=== PATIENT | male | born 1970 | race Caucasian/White ===

== ENCOUNTER → 2017-06-25 | Day surgery (SDC) | payer MEDICARE, MEDICAID ==
[2017-06-22 09:24] VITALS: BP 134/78
[~2017-06-25] VITALS: Ht 172.7 cm; Wt 81.6 kg
[~2017-06-25] MED LIST: CILOSTAZOL100 MG PO; ELIQUIS5 M1 PO; KEFLEX500 MG PO; LOVASTATIN40 MG PO; NORCO 5-325 TA1 EACH PO; WARFARIN SODIUM4 MG PO; ZOFRAN4 MG PO
--- NOTE | ~2017-06-25 | PROC NOTE ---
[place], [place] PROCEDURE NOTE NAME: JAME PERKINS [facility] #: [id number] UNIT #: [id number] ROOM: DOCTOR: DESMOND BAIG MD BIRTHDATE: [birth year] DOS: 06/25/2017 PREOPERATIVE DIAGNOSIS: Right thigh cyst. POSTOPERATIVE DIAGNOSIS: Right thigh cyst. PROCEDURE: Excision of right thigh cyst. SURGEON: Desmond Baig MD CURRICULUM COACH: MS3. ANESTHESIA: MAC. INDICATIONS: This is a 46-year-old male with a history of persistent right thigh cyst who is here for the above-mentioned procedure. The procedure and its complications were explained to the patient in detail. Complications that were discussed included but were not limited to bleeding, infection, hematoma/seroma/abscess formation and prolonged pain. He agreed to proceed. DESCRIPTION OF PROCEDURE: After identifying the patient, the patient was brought to the operating suite and placed in the right lateral position with his left lower extremity flexed at the hip. After IV sedation was administered, parts were painted and draped and a time-out procedure was called. An elliptical incision was marked and local anesthesia (1% plain lidocaine) was infiltrated in the marked site. A skin incision was made and was deepened in layers. This cyst was excised in its entirety after it was adequately dissected away from the surrounding structures with the help of electrocautery. The cyst was then removed and sent for histopathological diagnosis. Hemostasis was achieved with the help of electrocautery. Thereafter, the subcutaneous tissue was irrigated and approximated with the help of 3-0 Vicryl in an interrupted fashion and the skin edges were approximated with the help of 4-0 Vicryl in a subcuticular running fashion. Dressing was placed. The patient tolerated the procedure well. There were no complications. The patient was brought back to the recovery room in stable fashion. Dr. Desmond Baig, the attending surgeon, was present throughout the operating case. Desmond Baig MD CM:PROCNOTE:PROCEDURE NOTE [id number] DESMOND BAIG MD
[2017-06-25 08:10] VITALS: BP 133/82
[2017-06-25 09:26] VITALS: BP 92/53
[2017-06-25 09:41] VITALS: BP 101/52
[2017-06-25 09:56] VITALS: BP 114/75
== END | disposition home or self-care (01) ==
LOC: SDC 06-22 08:00
DX: L72.3 Sebaceous cyst (principal); I10 Essential (primary) hypertension; E78.5 Hyperlipidemia, unspecified; I73.9 Peripheral vascular disease, unspecified; Z89.421 Acquired absence of other right toe(s); Z80.9 Family history of malignant neoplasm, unspecified; Z79.899 Other long term (current) drug therapy; I25.10 Atherosclerotic heart disease of native coronary artery without angina pectoris; Z87.891 Personal history of nicotine dependence

== ENCOUNTER → 2018-03-08 | Outpatient (CLI) | payer MEDICARE ==
[2018-03-08 09:01] LABS: BASO % 0.7 % (0.0-1.0); EOS # 0.3 10*3/uL (0.0-0.4); EOS % 5.6 % (1.0-4.0); HEMATOCRIT 44.1 % (42.0-52.0); HEMOGLOBIN 14.7 g/dl (14.0-18.0); LYMPH % 35.4 % (27.0-41.0); MEAN CELL VOLUME 92.6 fl (80.0-94.0); MEAN CORPUSCULAR HGB 30.9 pg (27.0-31.0); MEAN CORPUSCULAR HGB CONC 33.3 g/dl (33.0-37.0); MEAN PLATELET VOLUME 10.7 fl (9.6-12.3); MONO # 0.4 10*3/uL (0.1-1.0); MONO % 7.4 % (3.0-9.0); NEUT # 2.9 10*3/uL (2.3-7.9); NEUT % 50.9 % (47.0-73.0); PLATELET COUNT AUTOMATED 221 10*3/uL (130-400); RED BLOOD COUNT 4.76 10*6/uL (4.50-5.90); RED CELL DISTRI WIDTH 12.6 % (0-14.5); WHITE BLOOD COUNT 5.7 10*3/uL (4.8-10.8)
[2018-03-08 09:16] LABS: ALBUMIN 3.6 gm/dl (3.1-4.5); BUN 13 mg/dl (7-24); CHLORIDE 106 mmol/L (98-107); POTASSIUM 4.3 mmol/L (3.5-5.1); SODIUM 141 mmol/L (136-145)
[2018-03-08 09:28] LABS: ALKALINE PHOSPHATASE 68 U/L (45-117); CHOLESTEROL 131 mg/dL (<200); CREATININE 1.12 mg/dL (0.70-1.30); HDL CHOLESTEROL 48 mg/dl (40-60); LDL CHOLESTEROL 72 mg/dL (9-159); SGOT/AST 21 IU/L (3-35); SGPT/ALT 22 U/L (12-78); TRIGLYCERIDES 55 mg/dl (<150); VLDL CHOLESTEROL 11 mg/dL (6-40)
== END | disposition home or self-care (01) ==
LOC: LAB 08:08
PROVIDERS: Internal Medicine
DX: M50.323 Other cervical disc degeneration at C6-C7 level (principal); I73.1 Thromboangiitis obliterans [Buerger's disease]; E55.9 Vitamin D deficiency, unspecified; E78.2 Mixed hyperlipidemia; M47.892 Other spondylosis, cervical region; M77.8 Other enthesopathies, not elsewhere classified; R20.2 Paresthesia of skin

== ENCOUNTER → 2018-03-19 | Outpatient (CLI) | payer MEDICARE | END | disposition home or self-care (01) | LOC: MRI 14:00 | DX: M47.22 Other spondylosis with radiculopathy, cervical region (principal); V89.2XXD Person injured in unspecified motor-vehicle accident, traffic, subsequent encounter ==

== ENCOUNTER → 2018-11-04 | Day surgery (SDC) | payer MEDICARE ==
[~2018-11-04] VITALS: Ht 172.7 cm; Wt 88.5 kg
[~2018-11-04] MED LIST changes: +PRILOSEC20 M1 PO; +VITAMIN D PO
--- NOTE | ~2018-11-04 | PROC NOTE ---
[place], [place] PROCED[id number] UN[facility] #: [id number] ROOM: DOCTOR: DESMOND BAIG MD BIRTHDATE: [birth year] DOS: 11/04/2018 PREOPERATIVE DIAGNOSIS: Lower GI bleed. POSTOPERATIVE DIAGNOSES: Gastritis, duodenitis, sigmoid diverticulosis, internal hemorrhoids. PROCEDURE: EGD with antral biopsies x 2, colonoscopy. ENDOSCOPIST: Desmond Baig MD NAILING MACHINE OPERATOR: JEAN-PIERRE. ANESTHESIA: MAC. INDICATIONS: This is a 48-year-old gentleman who is here for a workup for lower GI bleed with an EGD and colonoscopy. The procedure and its complications were explained to the patient in detail preoperatively. Complications that were discussed included but were not limited to bleeding, colon perforation, gastric perforation, duodenal perforation, and missed lesions. He agreed to proceed. DESCRIPTION OF PROCEDURE: After identifying the patient, the patient was brought to the endoscopy suite and placed in left lateral position. After time-out procedure was called, a bite block was placed and IV sedation was administered by the anesthesia team. An adult gastroscope was introduced into the mouth and advanced sequentially into the pharynx, esophagus, stomach and the first 2 parts of the duodenum. There was found to be mild gastritis and duodenitis. Random antral gastric biopsies were sent x 2 for histopathological diagnosis. The scope was retroflexed and there was no other bleeding, lesions or abnormalities that could be identified. The scope was withdrawn. The esophagus was visualized in its entirety and was found to be within normal limits. After the scope was withdrawn, attention was turned towards the colonoscopy. A digital rectal exam was performed, which was within normal limits. An adult colonoscope was now introduced into the anal canal and advanced sequentially into the rectum, sigmoid colon, descending colon, transverse colon and ascending colon up to the cecum. The prep was found to be suboptimal in certain areas and saline irrigation was used to clear the colon. Upon reaching the cecum, the scope was withdrawn. The total withdrawal time was approximately 7 minutes. The entirety of the colon was visualized and there were no polyps, lesions or bleeding area that could be visualized. There was mild sigmoid diverticulosis, which was uncomplicated. Upon reaching the rectum, there was found to be internal hemorrhoids, which were uncomplicated. The scope was withdrawn and the patient was brought back to the recovery room in stable fashion. There were no complications. Dr. Desmond Baig, the attending endoscopist, was present throughout the operating case. Based on this finding, the patient is recommended to have another colonoscopy in 10 years or sooner if he has new symptoms. These findings were discussed with the patient's brother in the recovery room and will be discussed with the patient in the recovery room as well. [place], [place] PROCEDURE NOTE NAME: JAME PERKINS UNIT #: [id number] ROOM: DOCTOR: DESMOND BAIG MD BIRTHDATE: [birth year] Desmond Baig MD CM:PROCNOTE:PROCEDURE NOTE [id number] DESMOND BAIG MD
[2018-11-04 08:17] VITALS: BP 126/78
[2018-11-04 08:28] VITALS: BP 113/80
[2018-11-04 08:46] VITALS: BP 128/83
== END | disposition home or self-care (01) ==
LOC: SDC 11-01 11:00
DX: K57.30 Diverticulosis of large intestine without perforation or abscess without bleeding (principal); K64.8 Other hemorrhoids; K29.50 Unspecified chronic gastritis without bleeding; K29.80 Duodenitis without bleeding; I10 Essential (primary) hypertension; E78.5 Hyperlipidemia, unspecified; I25.10 Atherosclerotic heart disease of native coronary artery without angina pectoris; Z87.891 Personal history of nicotine dependence; Z98.890 Other specified postprocedural states; Z79.899 Other long term (current) drug therapy; Z88.8 Allergy status to other drugs, medicaments and biological substances; Z79.01 Long term (current) use of anticoagulants

== ENCOUNTER → 2018-12-02 | Outpatient (CLI) | payer MEDICARE ==
[2018-12-02 12:42] LABS: BASO % 0.7 % (0.0-1.0); EOS # 0.2 10*3/uL (0.0-0.4); EOS % 3.3 % (1.0-4.0); HEMOGLOBIN 15.4 g/dl (14.0-18.0); LYMPH # 1.9 10*3/uL (1.3-4.4); LYMPH % 32.2 % (27.0-41.0); MEAN CELL VOLUME 93.1 fl (80.0-94.0); MEAN CORPUSCULAR HGB 30.5 pg (27.0-31.0); MEAN CORPUSCULAR HGB CONC 32.8 g/dl (33.0-37.0); MEAN PLATELET VOLUME 10.5 fl (9.6-12.3); MONO # 0.4 10*3/uL (0.1-1.0); MONO % 7.6 % (3.0-9.0); NEUT # 3.3 10*3/uL (2.3-7.9); PLATELET COUNT AUTOMATED 228 10*3/uL (130-400); RED BLOOD COUNT 5.05 10*6/uL (4.50-5.90); RED CELL DISTRI WIDTH 12.6 % (0-14.5); WHITE BLOOD COUNT 5.8 10*3/uL (4.8-10.8)
[2018-12-02 13:12] LABS: BUN 11 mg/dl (7-24); CHLORIDE 104 mmol/L (98-107); CREATININE 1.13 mg/dL (0.70-1.30); POTASSIUM 4.3 mmol/L (3.5-5.1); SODIUM 138 mmol/L (136-145)
[2018-12-02 13:13] LABS: ACT PARTIAL THROMBO TIME 23.5 SECONDS (20.8-31.5); INTERNATIONAL NORM RATIO 0.9 (2.0-3.5)
== END | disposition home or self-care (01) ==
LOC: LAB 10:34
PROVIDERS: Surgery
DX: Q25.3 Supravalvular aortic stenosis (principal); K40.90 Unilateral inguinal hernia, without obstruction or gangrene, not specified as recurrent; D68.8 Other specified coagulation defects

== ENCOUNTER → 2018-12-09 | Day surgery (SDC) | payer MEDICARE ==
[2018-12-02 11:30] VITALS: BP 115/77
[~2018-12-09] VITALS: Ht 172.7 cm; Wt 88.5 kg
--- NOTE | ~2018-12-09 | O ---
[place], [place] OPERATIVE NOTE [id number] UN[facility] #: [id number] ROOM: DOCTOR: MEHUL BAIG MD BIRTHDATE: [birth year] DOS: 12/09/2018 PREOPERATIVE DIAGNOSIS: Left inguinal hernia. POSTOPERATIVE DIAGNOSIS: Left inguinal hernia. PROCEDURE: Left inguinal hernia repair with plug and mesh (large). SURGEON: Mehul Baig MD CLINICAL TRIAL LEADER: JEAN-PIERRE. ANESTHESIA: General with endotracheal intubation. INDICATIONS: This is a 48-year-old gentleman who is here for repair of left inguinal hernia. The procedure and its complications were explained to the patient in detail preoperatively. Complications that were discussed included but were not limited to bleeding, infection, hematoma/seroma/abscess formation, prolonged postoperative pain, recurrence and damage to lying vital structures. He agreed to proceed. DESCRIPTION OF PROCEDURE: After identifying the patient, the patient was brought to the operating suite and laid in the supine position. After induction of general anesthesia, the parts were painted and draped in the usual sterile fashion and a time-out procedure was called. An incision was marked in the left groin parallel to the left inguinal ligament. The skin and the subcutaneous tissue were incised in the line of the incision. The external oblique was opened in the line of its fibers. The cord structures were identified and encircled with the help of a Viky drain. There was a cord lipoma that was visualized, that was excised and sent for histopathological diagnosis. There was a very small indirect sac that was visualized, which was allowed to retract back into the abdominal cavity. In order to repair the internal ring, a large plug was placed and sutured to the conjoint tendon with the help of 2-0 Prolene in an interrupted fashion. Mesh was then placed on the floor of the inguinal canal and sutured to the upturned part of the inguinal ligament inferiorly and to the conjoined tendon superiorly with the help 2-0 Prolene in a running fashion. Thereafter, the Viky drain was removed and the cord structures allowed to retract back into their normal position. The external oblique aponeurosis was approximated with the help of 0 Vicryl in a running fashion. The subcutaneous tissue was irrigated and approximated with the help of 3-0 Vicryl in a running fashion and the edges of the skin were approximated with the help of 4-0 Vicryl in a subcuticular running fashion. Dressings were placed in the entire incision and the patient was extubated uneventfully and brought back to the recovery in a sterile fashion. There were no complications. Dr. Mehul Baig, the attending surgeon, was present throughout the operating case. [place], [place] OPERATIVE NOTE NAME: JAME PERKINS UNIT #: [id number] ROOM: DOCTOR: MEHUL BAIG MD BIRTHDATE: [birth year] Mehul Baig MD CM:OPRECORD:OPERATIVE NOTE [id number] MEHUL BAIG MD 12/09/18 1149 interface
[2018-12-09 11:19] VITALS: BP 137/92
[2018-12-09 11:34] VITALS: BP 141/85
[2018-12-09 11:50] VITALS: BP 151/80
[2018-12-09 12:05] VITALS: BP 130/78
[2018-12-09 12:20] VITALS: BP 146/78
[2018-12-09 12:35] VITALS: BP 138/77
== END | disposition home or self-care (01) ==
LOC: SDC 12-03 10:15
DX: K40.90 Unilateral inguinal hernia, without obstruction or gangrene, not specified as recurrent (principal); D17.6 Benign lipomatous neoplasm of spermatic cord; I10 Essential (primary) hypertension; Z79.01 Long term (current) use of anticoagulants; Z79.899 Other long term (current) drug therapy; Z87.891 Personal history of nicotine dependence; Z98.890 Other specified postprocedural states

== ENCOUNTER → 2019-03-31 | Outpatient (CLI) | payer MEDICARE ==
[2019-03-31 08:26] LABS: BASO % 0.5 % (0.0-1.0); EOS # 0.3 10*3/uL (0.0-0.4); EOS % 5.2 % (1.0-4.0); HEMATOCRIT 44.8 % (42.0-52.0); HEMOGLOBIN 15.1 g/dl (14.0-18.0); LYMPH # 1.6 10*3/uL (1.3-4.4); LYMPH % 26.2 % (27.0-41.0); MEAN CELL VOLUME 91.4 fl (80.0-94.0); MEAN CORPUSCULAR HGB 30.8 pg (27.0-31.0); MEAN CORPUSCULAR HGB CONC 33.7 g/dl (33.0-37.0); MEAN PLATELET VOLUME 10.8 fl (9.6-12.3); MONO # 0.4 10*3/uL (0.1-1.0); MONO % 7.1 % (3.0-9.0); NEUT # 3.6 10*3/uL (2.3-7.9); NEUT % 60.7 % (47.0-73.0); PLATELET COUNT AUTOMATED 253 10*3/uL (130-400); RED CELL DISTRI WIDTH 13.1 % (0-14.5); WHITE BLOOD COUNT 5.9 10*3/uL (4.8-10.8)
[2019-03-31 09:02] LABS: BUN 15 mg/dl (7-24); CHLORIDE 106 mmol/L (98-107); CHOLESTEROL 160 mg/dL (<200); CREATININE 1.21 mg/dL (0.70-1.30); POTASSIUM 3.6 mmol/L (3.5-5.1); SODIUM 141 mmol/L (136-145); TRIGLYCERIDES 96 mg/dl (<150); VLDL CHOLESTEROL 19 mg/dL (6-40)
[2019-03-31 09:14] LABS: HDL CHOLESTEROL 48 mg/dl (40-60); LDL CHOLESTEROL 93 mg/dL (9-159)
[2019-03-31 09:18] LABS: VITAMIN D, 25-HYDROXY 40.5 ng/mL (30-100)
== END | disposition home or self-care (01) ==
LOC: LAB 07:22
PROVIDERS: Internal Medicine
DX: E78.2 Mixed hyperlipidemia (principal); E55.9 Vitamin D deficiency, unspecified; R59.1 Generalized enlarged lymph nodes; M47.22 Other spondylosis with radiculopathy, cervical region; Z79.899 Other long term (current) drug therapy

== ENCOUNTER → 2019-06-14 | Outpatient (CLI) | payer MEDICARE | END | disposition home or self-care (01) | LOC: RESCLI 00:29 | DX: I73.9 Peripheral vascular disease, unspecified (principal); M54.5 Low back pain; I10 Essential (primary) hypertension; E78.2 Mixed hyperlipidemia; I73.1 Thromboangiitis obliterans [Buerger's disease]; E55.9 Vitamin D deficiency, unspecified; R20.2 Paresthesia of skin; M47.22 Other spondylosis with radiculopathy, cervical region; K21.9 Gastro-esophageal reflux disease without esophagitis; K59.00 Constipation, unspecified; R10.32 Left lower quadrant pain; Q25.3 Supravalvular aortic stenosis; Z98.890 Other specified postprocedural states; Z87.19 Personal history of other diseases of the digestive system; Z79.899 Other long term (current) drug therapy ==

== ENCOUNTER → 2019-06-21 | Outpatient (CLI) | payer MEDICARE ==
[~2019-06-21] MED LIST changes: +ANUCORT-HC25 MG R; +XARELTO10 MG PO
== END | disposition home or self-care (01) ==
LOC: CANPRECLI → RESCLI 00:11
DX: Z53.9 Procedure and treatment not carried out, unspecified reason (principal)

== ENCOUNTER 2019-07-17 13:13 | Emergency (ER) | payer MEDICARE ==
[~2019-07-17] VITALS: Ht 172.7 cm; Wt 86.2 kg
[~2019-07-17 13:13] MED LIST changes: -ANUCORT-HC25 MG R; -XARELTO10 MG PO
[2019-07-17 13:15] VITALS: BP 142/88
[2019-07-17 14:27] LABS: BASO # 0.1 10*3/uL (0.0-0.1); BASO % 0.9 % (0.0-1.0); EOS # 0.2 10*3/uL (0.0-0.4); EOS % 3.5 % (1.0-4.0); HEMATOCRIT 43.5 % (42.0-52.0); HEMOGLOBIN 14.6 g/dl (14.0-18.0); LYMPH % 34.9 % (27.0-41.0); MEAN CELL VOLUME 91.8 fl (80.0-94.0); MEAN CORPUSCULAR HGB 30.8 pg (27.0-31.0); MEAN CORPUSCULAR HGB CONC 33.6 g/dl (33.0-37.0); MEAN PLATELET VOLUME 10.4 fl (9.6-12.3); MONO # 0.5 10*3/uL (0.1-1.0); MONO % 8.3 % (3.0-9.0); PLATELET COUNT AUTOMATED 224 10*3/uL (130-400); RED BLOOD COUNT 4.74 10*6/uL (4.50-5.90); RED CELL DISTRI WIDTH 13.2 % (0-14.5); WHITE BLOOD COUNT 5.7 10*3/uL (4.8-10.8)
[2019-07-17 14:38] LABS: ACT PARTIAL THROMBO TIME 27.8 SECONDS (20.0-32.1); INTERNATIONAL NORM RATIO 0.9 (2.0-3.5)
[2019-07-17 14:44] LABS: ALBUMIN 3.7 gm/dl (3.1-4.5); ALKALINE PHOSPHATASE 73 U/L (45-117); BUN 8 mg/dl (7-24); CHLORIDE 105 mmol/L (98-107); CREATININE 1.13 mg/dL (0.70-1.30); LIPASE 75 U/L (73-393); POTASSIUM 3.6 mmol/L (3.5-5.1); SGOT/AST 13 IU/L (3-35); SGPT/ALT 21 U/L (12-78); SODIUM 138 mmol/L (136-145); TOTAL PROTEIN 7.1 gm/dL (6.4-8.2); TROPONIN I < 0.015 ng/ml (<0.045)
--- NOTE | 2019-07-17 19:10 | NUR ---
The patient, JAME PERKINS, 48, [birth year], [id number], [id number], presented to the Emergency Department at 1333. The patient's Chief Complaint was GI BLEED. The patient subsequently left "Against Medical Advice" at 1910. Treatment completed included LAB,CTEKG . Possible complications and consequences of not following medical advice were clearly explained to the patient by Dr. and SUE OLIVEROS RN. Assessment of the patient's competence, for making the decision to refuse completion of previously requested exam and treatment, includes alert and oriented. Attempts made to get self involved in persuading the patient to accept, MAKEDA Cantu DO, the physician's recommendations. Discussion included COMPLICATIONS LEAVING AMA . The patient's response was VOCIED UNDERSTANDING . Family/friends who witnessed the discussion includes . Signatures requested. The patient sign the chart; this was witnessed by SUE OLIVEROS RN. The patient's reason for departing, prior to completion of treatment was "refuses to be admitted". The patient's disposition is dc against medical advice, to the care of self. Arrangements have been made for the ED staff to "Call Back" the patient the following day, to inquire about the patient's medical status and encourage JAME PERKINS, to seek medical attention, if this has not been completed. ERENDIRA ROGERS
[2019-08-25] MEDS ORDERED: XARELTO10 MG PO (17:39)
[2019-08-31] MEDS ORDERED: ANUCORT-HC25 MG R (09:03)
== END 2019-07-17 19:10 | disposition left against medical advice (07) ==
LOC: ED 13:13 → EDHOLD 18:35 → ED 19:10
PROVIDERS: Emergency Medicine
DX: K92.2 Gastrointestinal hemorrhage, unspecified (principal); Z89.421 Acquired absence of other right toe(s); Z91.048 Other nonmedicinal substance allergy status; Z79.899 Other long term (current) drug therapy

== ENCOUNTER → 2019-07-19 | Outpatient (CLI) | payer MEDICARE | END | disposition home or self-care (01) | LOC: RESCLI 01:26 | DX: E78.2 Mixed hyperlipidemia (principal); I73.9 Peripheral vascular disease, unspecified; M54.5 Low back pain; I10 Essential (primary) hypertension; I73.1 Thromboangiitis obliterans [Buerger's disease]; E55.9 Vitamin D deficiency, unspecified; R20.2 Paresthesia of skin; M47.22 Other spondylosis with radiculopathy, cervical region; K21.9 Gastro-esophageal reflux disease without esophagitis; K59.00 Constipation, unspecified; G58.9 Mononeuropathy, unspecified; K57.91 Diverticulosis of intestine, part unspecified, without perforation or abscess with bleeding; R10.32 Left lower quadrant pain; Z98.890 Other specified postprocedural states; Z87.19 Personal history of other diseases of the digestive system ==

== ENCOUNTER → 2019-08-31 | Day surgery (SDC) | payer MEDICARE ==
[~2019-08-31] VITALS: Ht 172.7 cm; Wt 86.2 kg
[~2019-08-31] MED LIST changes: +ANUCORT-HC25 MG R; +XARELTO10 MG PO
--- NOTE | ~2019-08-31 | O ---
[place], [place] OPERATIVE NOTE NAME: JAME PERKINS UNIT #: [id number] ROOM: DO[facility] [birth year] DOS: 08/31/2019 GASTROENDOSCOPIC REPORT INDICATIONS: A 48-year-old patient who has presented with chief complaint of rectal bleed, blood in the stool. The patient on Xarelto. The patient on Prilosec. PAST MEDICAL HISTORY: Lower abdominal pain, status post left inguinal hernia repair. Hyperlipidemia, Buerger's disease. ALLERGIES: Denies any allergy. FAMILY HISTORY: Noncontributory. PAST SURGICAL HISTORY: Inguinal hernia repair, ____. SOCIAL HISTORY: Nonsmoker, nonalcohol consumer and on Xarelto. PROCEDURE: Today's procedure part of investigation is colonoscopy plus piecemeal polypectomy plus biopsy and photographic series. PREMEDICATION: Propofol. SCOPE: Olympus forward-viewing colonoscope 10L video. REPORT: After putting the patient in left lateral position and application of lubricant to the scope, the scope was introduced. Thereafter, under direct visualization, advanced through the length of colon without difficulty. Base of the cecum explored, appendiceal orifice identified, ileocecal valve was defined. Diverticulosis of sigmoid colon was identified. Noticed sessile polypoid lesion in ____ with piecemeal polypectomy removed. Nonspecific colitis, sigmoid colon was biopsied. Air was suctioned out from the cecum, ascending, transverse colon. The patient extubated and tolerated the procedure well. IMPRESSION: Small hemorrhoids as a cause of rectal bleed, which is assisted in the presence of Xarelto therapy. Nonspecific colitis, sigmoid colon diverticulosis, sessile polypoid lesion in sigmoid colon. PLAN AND DISCUSSION: Anucort-HC suppository would be prescribed one at bedtime and clinical reassessment as an outpatient, source of bleeding most likely secondary to presence of the hemorrhoids. [place], [place] OPERATIVE NOTE NAME: JAME PERKINS UNIT #: [id number] ROOM: DOCTOR[facility]: [birth year] CHARLES BANDA MD CM:OPRECORD:OPERATIVE NOTE [id number] CHARLES BANDA MD 08/31/19 0917 interface
[2019-08-31 07:30] VITALS: BP 138/64
[2019-08-31 08:45] VITALS: BP 122/78
[2019-08-31 09:00] VITALS: BP 127/85
[2019-08-31 09:12] VITALS: BP 136/85
== END | disposition home or self-care (01) ==
LOC: SDC 08-26 08:00
DX: K63.5 Polyp of colon (principal); K62.5 Hemorrhage of anus and rectum; K57.30 Diverticulosis of large intestine without perforation or abscess without bleeding; K21.9 Gastro-esophageal reflux disease without esophagitis; E78.00 Pure hypercholesterolemia, unspecified; E78.5 Hyperlipidemia, unspecified; I25.10 Atherosclerotic heart disease of native coronary artery without angina pectoris; Z98.890 Other specified postprocedural states; Z79.899 Other long term (current) drug therapy; Z80.8 Family history of malignant neoplasm of other organs or systems

== ENCOUNTER → 2019-11-03 | Outpatient (CLI) | payer MEDICARE | END | disposition home or self-care (01) | LOC: RESCLI 00:59 | DX: I73.9 Peripheral vascular disease, unspecified (principal); I10 Essential (primary) hypertension; Q25.3 Supravalvular aortic stenosis; M54.5 Low back pain; E78.2 Mixed hyperlipidemia; I73.1 Thromboangiitis obliterans [Buerger's disease]; E55.9 Vitamin D deficiency, unspecified; M47.22 Other spondylosis with radiculopathy, cervical region; K21.9 Gastro-esophageal reflux disease without esophagitis; K59.00 Constipation, unspecified; G58.9 Mononeuropathy, unspecified; K57.91 Diverticulosis of intestine, part unspecified, without perforation or abscess with bleeding; K57.90 Diverticulosis of intestine, part unspecified, without perforation or abscess without bleeding; R20.2 Paresthesia of skin; R10.32 Left lower quadrant pain; Z98.890 Other specified postprocedural states; Z87.19 Personal history of other diseases of the digestive system; Z79.899 Other long term (current) drug therapy; Z88.9 Allergy status to unspecified drugs, medicaments and biological substances ==

== ENCOUNTER → 2020-05-23 | Outpatient (CLI) | payer MEDICARE ==
[2020-05-23 10:10] LABS: BASO # 0.1 10*3/uL (0.0-0.1); BASO % 0.9 % (0.0-1.0); EOS # 0.3 10*3/uL (0.0-0.4); EOS % 4.7 % (1.0-4.0); HEMATOCRIT 44.2 % (42.0-52.0); LYMPH # 1.9 10*3/uL (1.3-4.4); LYMPH % 34.7 % (27.0-41.0); MEAN CELL VOLUME 90.6 fl (80.0-94.0); MEAN CORPUSCULAR HGB 29.9 pg (27.0-31.0); MEAN PLATELET VOLUME 10.3 fl (9.6-12.3); MONO # 0.4 10*3/uL (0.1-1.0); MONO % 7.5 % (3.0-9.0); NEUT # 2.9 10*3/uL (2.3-7.9); PLATELET COUNT AUTOMATED 243 10*3/uL (130-400); RED BLOOD COUNT 4.88 10*6/uL (4.50-5.90); RED CELL DISTRI WIDTH 13.2 % (0-14.5); WHITE BLOOD COUNT 5.5 10*3/uL (4.8-10.8)
[2020-05-23 10:31] LABS: ALBUMIN 3.8 gm/dl (3.1-4.5); ALKALINE PHOSPHATASE 78 U/L (45-117); BUN 9 mg/dl (7-24); CHLORIDE 106 mmol/L (98-107); CREATININE 1.22 mg/dL (0.70-1.30); POTASSIUM 4.1 mmol/L (3.5-5.1); SGOT/AST 20 IU/L (3-35); SGPT/ALT 24 U/L (12-78); SODIUM 139 mmol/L (136-145); TOTAL PROTEIN 7.6 gm/dL (6.4-8.2)
== END | disposition home or self-care (01) ==
LOC: RESCLI 03:10
PROVIDERS: Hospitalist
DX: I73.9 Peripheral vascular disease, unspecified (principal); M54.5 Low back pain; I10 Essential (primary) hypertension; E78.2 Mixed hyperlipidemia; Q25.3 Supravalvular aortic stenosis; I73.1 Thromboangiitis obliterans [Buerger's disease]; E55.9 Vitamin D deficiency, unspecified; M47.22 Other spondylosis with radiculopathy, cervical region; K21.9 Gastro-esophageal reflux disease without esophagitis; K59.00 Constipation, unspecified; R10.30 Lower abdominal pain, unspecified; K92.1 Melena; R21 Rash and other nonspecific skin eruption

== ENCOUNTER → 2020-05-31 | Outpatient (CLI) | payer MEDICARE | END | disposition home or self-care (01) | LOC: CT 07:53 | DX: K76.0 Fatty (change of) liver, not elsewhere classified (principal); D35.02 Benign neoplasm of left adrenal gland; K57.30 Diverticulosis of large intestine without perforation or abscess without bleeding; N28.1 Cyst of kidney, acquired; J98.11 Atelectasis; K42.9 Umbilical hernia without obstruction or gangrene ==

== ENCOUNTER → 2020-06-26 | Outpatient (CLI) | payer MEDICARE | END | disposition home or self-care (01) | LOC: RESCLI 01:02 | PROVIDERS: ATTEND Internal Medicine | DX: Q25.3 Supravalvular aortic stenosis (principal); I73.9 Peripheral vascular disease, unspecified; M54.5 Low back pain; I10 Essential (primary) hypertension; E78.2 Mixed hyperlipidemia; I73.1 Thromboangiitis obliterans [Buerger's disease]; E55.9 Vitamin D deficiency, unspecified; R20.2 Paresthesia of skin; M47.22 Other spondylosis with radiculopathy, cervical region; K21.9 Gastro-esophageal reflux disease without esophagitis; K59.00 Constipation, unspecified; R10.32 Left lower quadrant pain; Z79.899 Other long term (current) drug therapy; Z98.890 Other specified postprocedural states; Z88.8 Allergy status to other drugs, medicaments and biological substances ==

== ENCOUNTER → 2020-07-10 | Outpatient (CLI) | payer MEDICARE | END | disposition home or self-care (01) | LOC: COVID19 00:14 | PROVIDERS: ATTEND Surgery | DX: Z01.812 Encounter for preprocedural laboratory examination (principal); Z20.828 Contact with and (suspected) exposure to other viral communicable diseases ==

== ENCOUNTER → 2020-07-31 | Outpatient (CLI) | payer MEDICARE | END | disposition home or self-care (01) | LOC: RESCLI 07-30 11:29 | PROVIDERS: ATTEND Student in an Organized Health Care Education/Training Program | DX: Q25.3 Supravalvular aortic stenosis (principal); I73.9 Peripheral vascular disease, unspecified; M54.5 Low back pain; I10 Essential (primary) hypertension; E78.2 Mixed hyperlipidemia; I73.1 Thromboangiitis obliterans [Buerger's disease]; E55.9 Vitamin D deficiency, unspecified; R20.2 Paresthesia of skin; M47.22 Other spondylosis with radiculopathy, cervical region; K21.9 Gastro-esophageal reflux disease without esophagitis; K59.00 Constipation, unspecified; R10.32 Left lower quadrant pain; Z79.899 Other long term (current) drug therapy; Z98.890 Other specified postprocedural states; Z88.8 Allergy status to other drugs, medicaments and biological substances ==

== ENCOUNTER → 2020-08-10 | Outpatient (CLI) | payer MEDICARE | END | disposition home or self-care (01) | LOC: COVID19 04:26 | PROVIDERS: ATTEND Surgery | DX: Z01.812 Encounter for preprocedural laboratory examination (principal); Z20.828 Contact with and (suspected) exposure to other viral communicable diseases ==

== ENCOUNTER → 2020-09-07 | Outpatient (CLI) | payer MEDICARE | END | disposition home or self-care (01) | LOC: RESCLI 06:07 | PROVIDERS: ATTEND Emergency Medicine | DX: Q25.3 Supravalvular aortic stenosis (principal); I73.9 Peripheral vascular disease, unspecified; M54.5 Low back pain; I10 Essential (primary) hypertension; E78.2 Mixed hyperlipidemia; I73.1 Thromboangiitis obliterans [Buerger's disease]; E55.9 Vitamin D deficiency, unspecified; R20.2 Paresthesia of skin; M47.22 Other spondylosis with radiculopathy, cervical region; K21.9 Gastro-esophageal reflux disease without esophagitis; K59.00 Constipation, unspecified; R10.32 Left lower quadrant pain; Z79.899 Other long term (current) drug therapy; Z98.890 Other specified postprocedural states ==

== ENCOUNTER → 2020-12-31 | Outpatient (CLI) | payer MEDICARE ==
[~2020-12-31] MED LIST changes: +COLACE100 MG PO; +LINZESS290 MC1 PO; +PERCOCET 5-3251 EACH PO
== END | disposition home or self-care (01) ==
LOC: COVID19 09-19 10:30
PROVIDERS: ATTEND Surgery
DX: Z20.822 Contact with and (suspected) exposure to COVID-19 (principal)

== ENCOUNTER → 2021-01-03 | Day surgery (SDC) | payer MEDICARE ==
[2020-12-31 14:34] VITALS: BP 124/90
[~2021-01-03] VITALS: Ht 172.7 cm; Wt 88.5 kg
[2021-01-03] VITALS (10 sets, daily range): BP systolic 126–189; BP diastolic 56–101
== END ==
LOC: SDC 12-31 14:00
PROVIDERS: ATTEND Surgery
DX: R10.32 Left lower quadrant pain (principal); I25.10 Atherosclerotic heart disease of native coronary artery without angina pectoris; K21.9 Gastro-esophageal reflux disease without esophagitis; F32.9 Major depressive disorder, single episode, unspecified; Z89.421 Acquired absence of other right toe(s); Z79.899 Other long term (current) drug therapy

== ENCOUNTER → 2021-04-03 | Outpatient (CLI) | payer MEDICARE | END | disposition home or self-care (01) | LOC: RESCLI 02:17 | PROVIDERS: ATTEND Internal Medicine | DX: Q25.3 Supravalvular aortic stenosis (principal); I73.9 Peripheral vascular disease, unspecified; M54.5 Low back pain; I10 Essential (primary) hypertension; E78.2 Mixed hyperlipidemia; I73.1 Thromboangiitis obliterans [Buerger's disease]; E55.9 Vitamin D deficiency, unspecified; R20.2 Paresthesia of skin; M47.22 Other spondylosis with radiculopathy, cervical region; K21.9 Gastro-esophageal reflux disease without esophagitis; K59.00 Constipation, unspecified; R10.32 Left lower quadrant pain; R10.30 Lower abdominal pain, unspecified; Z79.899 Other long term (current) drug therapy; Z98.890 Other specified postprocedural states; Z88.8 Allergy status to other drugs, medicaments and biological substances ==

== ENCOUNTER → 2021-07-02 | Outpatient (CLI) | payer MEDICARE ==
[2021-07-02 09:54] LABS: BASO # 0.1 10*3/uL (0.0-0.1); BASO % 0.7 % (0.0-1.0); EOS # 0.3 10*3/uL (0.0-0.4); EOS % 3.8 % (1.0-4.0); HEMATOCRIT 44.9 % (42.0-52.0); LYMPH # 2.3 10*3/uL (1.3-4.4); MEAN CELL VOLUME 92.2 fl (80.0-94.0); MEAN CORPUSCULAR HGB 30.4 pg (27.0-31.0); MEAN PLATELET VOLUME 9.9 fl (9.6-12.3); MONO # 0.5 10*3/uL (0.1-1.0); MONO % 7.2 % (3.0-9.0); NEUT # 3.9 10*3/uL (2.3-7.9); PLATELET COUNT AUTOMATED 242 10*3/uL (130-400); RED BLOOD COUNT 4.87 10*6/uL (4.50-5.90); RED CELL DISTRI WIDTH 13.6 % (0-14.5)
[2021-07-02 10:14] LABS: ALBUMIN 3.8 gm/dl (3.1-4.5); ALKALINE PHOSPHATASE 75 U/L (45-117); BUN 13 mg/dl (7-24); CHLORIDE 106 mmol/L (98-107); CHOLESTEROL 159 mg/dL (<200); CREATININE 1.15 mg/dL (0.70-1.30); LDL CHOLESTEROL 99 mg/dL (9-159); POTASSIUM 3.6 mmol/L (3.5-5.1); SGOT/AST 10 IU/L (3-35); SGPT/ALT 20 U/L (12-78); SODIUM 138 mmol/L (136-145); TOTAL PROTEIN 7.5 gm/dL (6.4-8.2); TRIGLYCERIDES 47 mg/dl (<150)
== END | disposition home or self-care (01) ==
LOC: LAB 09:33
PROVIDERS: Hospitalist; ATTEND Emergency Medicine
DX: I73.1 Thromboangiitis obliterans [Buerger's disease] (principal); E78.2 Mixed hyperlipidemia; R20.2 Paresthesia of skin

== ENCOUNTER → 2021-08-13 | Outpatient (CLI) | payer MEDICARE | END | disposition home or self-care (01) | LOC: RESCLI 00:44 | PROVIDERS: ATTEND Internal Medicine | DX: K59.00 Constipation, unspecified (principal); Q25.3 Supravalvular aortic stenosis; I73.9 Peripheral vascular disease, unspecified; M54.59 Other low back pain; I10 Essential (primary) hypertension; E78.2 Mixed hyperlipidemia; I73.1 Thromboangiitis obliterans [Buerger's disease]; E55.9 Vitamin D deficiency, unspecified; M47.22 Other spondylosis with radiculopathy, cervical region; K21.9 Gastro-esophageal reflux disease without esophagitis; R10.32 Left lower quadrant pain; Z79.899 Other long term (current) drug therapy; Z87.891 Personal history of nicotine dependence; Z88.8 Allergy status to other drugs, medicaments and biological substances ==

== ENCOUNTER → 2021-12-10 | Outpatient (CLI) | payer MEDICARE | END | disposition home or self-care (01) | LOC: RESCLI 01:33 | PROVIDERS: ATTEND Student in an Organized Health Care Education/Training Program | DX: Q25.3 Supravalvular aortic stenosis (principal); I73.9 Peripheral vascular disease, unspecified; I10 Essential (primary) hypertension; E78.2 Mixed hyperlipidemia; I73.1 Thromboangiitis obliterans [Buerger's disease]; E55.9 Vitamin D deficiency, unspecified; M47.22 Other spondylosis with radiculopathy, cervical region; K21.9 Gastro-esophageal reflux disease without esophagitis; K59.00 Constipation, unspecified; R10.32 Left lower quadrant pain; Z79.899 Other long term (current) drug therapy; Z98.890 Other specified postprocedural states; Z88.8 Allergy status to other drugs, medicaments and biological substances ==

== ENCOUNTER → 2021-12-23 | Outpatient (CLI) | payer MEDICARE | LOC: CT 11:00 | PROVIDERS: ATTEND Internal Medicine Nephrology | DX: K42.9 Umbilical hernia without obstruction or gangrene (principal); R91.1 Solitary pulmonary nodule; R59.0 Localized enlarged lymph nodes; M51.37 Other intervertebral disc degeneration, lumbosacral region ==

== ENCOUNTER → 2022-03-11 | Outpatient (CLI) | payer MEDICARE | END | disposition home or self-care (01) | LOC: RESCLI 00:16 | PROVIDERS: ATTEND Emergency Medicine | DX: Q25.3 Supravalvular aortic stenosis (principal); I73.9 Peripheral vascular disease, unspecified; I10 Essential (primary) hypertension; E78.2 Mixed hyperlipidemia; I73.1 Thromboangiitis obliterans [Buerger's disease]; E55.9 Vitamin D deficiency, unspecified; M47.22 Other spondylosis with radiculopathy, cervical region; K21.9 Gastro-esophageal reflux disease without esophagitis; K59.00 Constipation, unspecified; R10.32 Left lower quadrant pain; R91.1 Solitary pulmonary nodule; Z88.8 Allergy status to other drugs, medicaments and biological substances; Z98.890 Other specified postprocedural states; Z79.899 Other long term (current) drug therapy ==

== ENCOUNTER → 2022-03-25 | Outpatient (CLI) | payer MEDICARE ==
[2022-03-25 10:57] LABS: ALKALINE PHOSPHATASE 75 U/L (45-117); BUN 10 mg/dl (7-24); CHLORIDE 108 mmol/L (98-107); CREATININE 1.13 mg/dL (0.70-1.30); POTASSIUM 4.1 mmol/L (3.5-5.1); SGOT/AST 12 IU/L (3-35); SGPT/ALT 23 U/L (12-78); SODIUM 138 mmol/L (136-145); TOTAL PROTEIN 7.4 gm/dL (6.4-8.2)
== END | disposition home or self-care (01) ==
LOC: LAB 10:25 → CT 11:00
PROVIDERS: Hospitalist; ATTEND Internal Medicine
DX: R91.1 Solitary pulmonary nodule (principal); Q26.3 Partial anomalous pulmonary venous connection; E78.2 Mixed hyperlipidemia; I73.9 Peripheral vascular disease, unspecified; I73.1 Thromboangiitis obliterans [Buerger's disease]; K44.9 Diaphragmatic hernia without obstruction or gangrene

== ENCOUNTER → 2022-12-25 | Outpatient (CLI) | payer MEDICARE | END | disposition home or self-care (01) | LOC: RESCLI 00:46 | PROVIDERS: Internal Medicine; ATTEND Student in an Organized Health Care Education/Training Program | DX: K21.9 Gastro-esophageal reflux disease without esophagitis (principal); I73.1 Thromboangiitis obliterans [Buerger's disease]; E78.2 Mixed hyperlipidemia; I10 Essential (primary) hypertension; K59.00 Constipation, unspecified; A64 Unspecified sexually transmitted disease; Z98.890 Other specified postprocedural states; Z88.8 Allergy status to other drugs, medicaments and biological substances; Z79.01 Long term (current) use of anticoagulants; Z79.899 Other long term (current) drug therapy ==

== ENCOUNTER → 2023-06-18 | Outpatient (CLI) | payer MEDICARE | END | disposition home or self-care (01) | LOC: RESCLI 11:10 | PROVIDERS: ATTEND Internal Medicine | DX: K04.7 Periapical abscess without sinus (principal); I73.1 Thromboangiitis obliterans [Buerger's disease]; E78.2 Mixed hyperlipidemia; I10 Essential (primary) hypertension; K59.00 Constipation, unspecified; K21.9 Gastro-esophageal reflux disease without esophagitis; Z98.890 Other specified postprocedural states; Z79.899 Other long term (current) drug therapy ==

== ENCOUNTER → 2023-12-17 | Outpatient (CLI) | payer MEDICARE ==
[2023-12-17 08:06] LABS: BASO % 0.7 % (0.0-1.0); EOS # 0.3 10*3/uL (0.0-0.4); EOS % 5.4 % (1.0-4.0); HEMATOCRIT 43.9 % (42.0-52.0); LYMPH # 2.1 10*3/uL (1.3-4.4); LYMPH % 35.5 % (27.0-41.0); MEAN CELL VOLUME 93.8 fl (80.0-94.0); MEAN CORPUSCULAR HGB 30.8 pg (27.0-31.0); MEAN CORPUSCULAR HGB CONC 32.8 g/dl (33.0-37.0); MEAN PLATELET VOLUME 10.5 fl (9.6-12.3); MONO # 0.5 10*3/uL (0.1-1.0); MONO % 7.7 % (3.0-9.0); NEUT % 50.5 % (47.0-73.0); PLATELET COUNT AUTOMATED 256 10*3/uL (130-400); RED BLOOD COUNT 4.68 10*6/uL (4.50-5.90); RED CELL DISTRI WIDTH 13.3 % (0-14.5); WHITE BLOOD COUNT 5.9 10*3/uL (4.8-10.8)
[2023-12-17 08:18] LABS: ALKALINE PHOSPHATASE 68 U/L (46-116); BUN 12 mg/dl (9-23); CHLORIDE 106 mmol/L (98-107); CHOLESTEROL 171 mg/dL (<200); LDL CHOLESTEROL 108 mg/dL (9-159); POTASSIUM 4.6 mmol/L (3.4-5.1); SGPT/ALT 14 U/L (5-49); TOTAL PROTEIN 7.3 gm/dL (6.0-8.0); TRIGLYCERIDES 71 mg/dl (<150)
== END | disposition home or self-care (01) ==
LOC: LAB 07:34
PROVIDERS: Student in an Organized Health Care Education/Training Program; ATTEND Internal Medicine
DX: I10 Essential (primary) hypertension (principal); E55.9 Vitamin D deficiency, unspecified